=== PATIENT | male | born 1950 | race Caucasian/White ===

== ENCOUNTER 2019-08-08 11:33 | Outpatient (CLI) | payer MEDICARE, OTHER ==
[2019-08-08 18:59] LABS: BASOPHILS % (AUTO) 0.7 %; EOSINOPHILS # (AUTO) 0.1 10^3/uL (0.0-0.7); EOSINOPHILS % (AUTO) 2.1 %; HGB - HEMOGLOBIN 14.1 g/dL (14.0-18.0); LYMPHOCYTES # (AUTO) 2.7 10^3/uL (1.5-3.5); LYMPHOCYTES % (AUTO) 46.6 %; MEAN CORPUSCULAR HEMOGLOBIN 29.1 pg (27.0-31.0); MEAN CORPUSCULAR HGB CONC 31.4 g/dL (32.0-36.0); MEAN CORPUSCULAR VOLUME 92.8 fL (80.0-94.0); MEAN PLATELET VOLUME 10.5 fL (7.4-11.4); MONOCYTES # (AUTO) 0.5 10^3/uL (0.0-1.0); MONOCYTES % (AUTO) 9.3 %; NEUTROPHILS # (AUTO) 2.4 10^3/uL (1.5-6.6); NEUTROPHILS % (AUTO) 41.1 %; PLT - PLATELET COUNT 206 10^3/uL (130-450); RED BLOOD COUNT 4.84 10^6/uL (4.70-6.10); RED CELL DISTRIBUTION WIDTH 13.6 % (12.0-15.0); WHITE BLOOD COUNT 5.8 x10^3/uL (4.8-10.8)
[2019-08-08 19:51] LABS: ALBUMIN 4.1 g/dL (3.2-5.5); ALBUMIN/GLOBULIN RATIO 1.2 (1.0-2.2); BILIRUBIN,TOTAL 0.7 mg/dL (0.2-1.0); CALCIUM 9.3 mg/dL (8.5-10.3); TOTAL PROTEIN 7.4 g/dL (6.7-8.2)
== END 2019-08-08 23:59 | disposition home or self-care (01) ==
LOC: LAB.WCP 11:33
PROVIDERS: ATTEND Physician Assistant Medical
DX: K50.90 Crohn's disease, unspecified, without complications (principal)
CPT/HCPCS: 36415; 80053; 85025

== ENCOUNTER 2020-07-17 07:28 | Outpatient (CLI) | payer MEDICARE, OTHER ==
--- NOTE | 2020-07-17 13:17 | XRAY Report ---
PROCEDURE: Lumbar Spine 2 View INDICATIONS: LUMBAR RADICULOPATHY TECHNIQUE: 2 views of the lumbar spine were acquired. COMPARISON: None. FINDINGS: Bones: 5 [id number] vertebrae are present. There is trace retrolithesis of L2 on L3. Moderate to severe foraminal narrowing at L5-S1. No vertebral body compression fractures. No suspicious bon y lesions. Soft tissues: Overlying bowel gas pattern is normal. No suspicious soft tissue calcifications. IMPRESSION: L5-S1 degenerative change. Reviewed by: Lianet Tejada MD on 07/17/2020 1:16 PM PDT Approved by: Lianet Tejada MD on 07/17/2020 1:16 PM PDT Station ID: [id number]
== END 2020-07-17 07:29 | disposition home or self-care (01) ==
LOC: DI.WCP 07:28
PROVIDERS: ATTEND Physician Assistant Medical
DX: M48.07 Spinal stenosis, lumbosacral region (principal)
CPT/HCPCS: 72100

== ENCOUNTER 2020-08-08 10:40 | Outpatient (CLI) | payer MEDICARE, OTHER ==
--- NOTE | 2020-08-08 10:44 | XRAY Report ---
PROCEDURE: Ribs 2 View RT INDICATIONS: RIGHT SIDED RIB PAIN TECHNIQUE: 2 views of the right ribs were acquired. COMPARISON: none FINDINGS: Surgical changes and devices: None. Bones and chest wall: No fractures or dislocations. No suspicious bony lesions. Overlying soft tis sues appear unremarkable. Lungs and pleura: The visualized lung appears clear. No pleural effusions or pneumothorax are visib le. IMPRESSION: No visualized acute fracture or dislocation. However, occult injury cannot be excluded. Recommend laurie rt interval imaging follow-up in 7-10 days as clinically indicated for additional evaluation. Reviewed by: Lianet Tejada MD on 08/08/2020 10:42 AM PDT Approved by: Lianet Tejada MD on 08/08/2020 10:42 AM PDT Station ID: [id number]
[2020-08-08 11:20] LABS: BASOPHILS % (AUTO) 0.7 %; EOSINOPHILS # (AUTO) 0.2 10^3/uL (0.0-0.7); EOSINOPHILS % (AUTO) 2.9 %; HGB - HEMOGLOBIN 14.4 g/dL (14.0-18.0); LYMPHOCYTES # (AUTO) 2.2 10^3/uL (1.5-3.5); LYMPHOCYTES % (AUTO) 38.8 %; MEAN CORPUSCULAR HEMOGLOBIN 30.8 pg (27.0-31.0); MEAN CORPUSCULAR HGB CONC 33.2 g/dL (32.0-36.0); MEAN CORPUSCULAR VOLUME 92.7 fL (80.0-94.0); MEAN PLATELET VOLUME 10.9 fL (7.4-11.4); MONOCYTES # (AUTO) 0.5 10^3/uL (0.0-1.0); NEUTROPHILS # (AUTO) 2.7 10^3/uL (1.5-6.6); NEUTROPHILS % (AUTO) 48.4 %; PLT - PLATELET COUNT 213 10^3/uL (130-450); RED BLOOD COUNT 4.68 10^6/uL (4.70-6.10); RED CELL DISTRIBUTION WIDTH 13.2 % (12.0-15.0); WHITE BLOOD COUNT 5.6 x10^3/uL (4.8-10.8)
[2020-08-08 12:00] LABS: ALBUMIN 4.2 g/dL (3.2-5.5); ALBUMIN/GLOBULIN RATIO 1.3 (1.0-2.2); ALKALINE PHOSPHATASE 49 IU/L (42-121); ALT ALANINE AMINOTRANSFERASE 18 IU/L (10-60); AST ASPARTATE AMINOTRANSFERASE 24 IU/L (10-42); BILIRUBIN,TOTAL 0.9 mg/dL (0.2-1.0); BUN - BLOOD UREA NITROGEN 14 mg/dL (6-20); CALCIUM 9.6 mg/dL (8.5-10.3); CARBON DIOXIDE - CO2 26 mmol/L (21-32); CHLORIDE 107 mmol/L (101-111); CHOL/HDL RATIO 2.8 (<5.0); CHOLESTEROL 177 mg/dL; CREATININE 0.9 mg/dL (0.6-1.2); GLUCOSE 100 mg/dL (70-100); HDL CHOLESTEROL 63 mg/dL; LDL CHOLESTEROL,CALCULATED 92 mg/dL; LDL/HDL RATIO 1.5 (<3.6); SODIUM 142 mmol/L (135-145); TOTAL PROTEIN 7.5 g/dL (6.7-8.2); VLDL CHOLESTEROL 22 mg/dL
== END 2020-08-08 23:59 | disposition home or self-care (01) ==
LOC: DI.WCP 10:40
PROVIDERS: ATTEND Physician Assistant Medical
DX: R07.81 Pleurodynia (principal); I10 Essential (primary) hypertension
CPT/HCPCS: 36415; 80053; 80061; 83721; 85025

== ENCOUNTER 2021-08-20 15:17 | Outpatient (CLI) | payer MEDICARE, OTHER ==
--- NOTE | 2021-08-21 09:37 | MRI Report ---
PROCEDURE: Lumbar Spine W/O INDICATIONS: LUMBAR RADICULOPATHY TECHNIQUE: Noncontrast sagittal T1 spin echo and T2 fast echo, sagittal STIR, axial T1 and T2 fast spin echo thr ough the lumbar spine. In cases with scoliosis, additional coronal T2 fast spin echo may be performe d. COMPARISON: None. FINDINGS: Image quality: Excellent. Alignment and Curvature: Trace degenerative anterolisthesis of L4 on L5. Bone Marrow: Marrow is of normal overall signal. No acute vertebral body compression fractures. Spinal Cord: Conus medullaris terminates at the L1 level. Visualized cord demonstrates normal signa l and size. Paraspinous Soft Tissues: No paravertebral masses. T12-L1: No canal stenosis or foraminal stenosis. L1-L2: No canal stenosis or foraminal stenosis. L2-L3: Mild facet hypertrophy. No canal stenosis or foraminal stenosis. L3-L4: Mild facet hypertrophy. No canal stenosis or foraminal stenosis. L4-L5: Prominent bilateral facet and ligament hypertrophy. Diffuse disc bulge. Trace degenerative a nterolisthesis of L4 on L5. Severe canal stenosis. Mild to moderate right foraminal narrowing with mi ld flattening deformity on the exiting right L4 nerve root. L5-S1: Disc bulge. Facet hypertrophy. Mild canal stenosis. No significant foraminal stenosis. IMPRESSION: 1. There is severe canal stenosis at L4-L5 and mild canal stenosis at L5-S1. 2. Multilevel facet arthropathy. Reviewed by: Noel Huerta MD on 08/21/2021 9:36 AM PDT Approved by: Noel Huerta MD on 08/21/2021 9:36 AM PDT Station ID: [id number]
== END 2021-08-20 15:18 | disposition home or self-care (01) ==
LOC: DI 15:17
PROVIDERS: ATTEND Physician Assistant Medical
DX: M54.16 Radiculopathy, lumbar region (principal); M48.061 Spinal stenosis, lumbar region without neurogenic claudication

== ENCOUNTER 2022-07-16 09:03 | Outpatient (CLI) | payer MEDICARE, OTHER ==
[2022-07-16 11:42] LABS: BASOPHILS % (AUTO) 0.5 %; EOSINOPHILS # (AUTO) 0.1 10^3/uL (0.0-0.7); EOSINOPHILS % (AUTO) 1.3 %; HGB - HEMOGLOBIN 13.9 g/dL (14.0-18.0); LYMPHOCYTES # (AUTO) 2.2 10^3/uL (1.5-3.5); LYMPHOCYTES % (AUTO) 36.8 %; MEAN CORPUSCULAR HEMOGLOBIN 30.3 pg (27.0-31.0); MEAN CORPUSCULAR HGB CONC 33.1 g/dL (32.0-36.0); MEAN CORPUSCULAR VOLUME 91.7 fL (80.0-94.0); MEAN PLATELET VOLUME 10.4 fL (7.4-11.4); MONOCYTES # (AUTO) 0.5 10^3/uL (0.0-1.0); MONOCYTES % (AUTO) 8.6 %; NEUTROPHILS # (AUTO) 3.1 10^3/uL (1.5-6.6); NEUTROPHILS % (AUTO) 52.6 %; PLT - PLATELET COUNT 216 10^3/uL (130-450); RED BLOOD COUNT 4.58 10^6/uL (4.70-6.10); RED CELL DISTRIBUTION WIDTH 13.5 % (12.0-15.0)
[2022-07-16 12:00] LABS: ALBUMIN 4.2 g/dL (3.2-5.5); ALBUMIN/GLOBULIN RATIO 1.2 (1.0-2.2); ALKALINE PHOSPHATASE 43 IU/L (42-121); ALT ALANINE AMINOTRANSFERASE 23 IU/L (10-60); AST ASPARTATE AMINOTRANSFERASE 29 IU/L (10-42); BILIRUBIN,TOTAL 1.1 mg/dL (0.2-1.0); BUN - BLOOD UREA NITROGEN 13 mg/dL (6-20); CALCIUM 9.7 mg/dL (8.5-10.3); CARBON DIOXIDE - CO2 26 mmol/L (21-32); CHLORIDE 107 mmol/L (101-111); CHOL/HDL RATIO 2.7 (<5.0); CHOLESTEROL 165 mg/dL; CREATININE 0.8 mg/dL (0.6-1.2); GFR - MDRD 95 (>89); GLUCOSE 112 mg/dL (70-100); HDL CHOLESTEROL 61 mg/dL; LDL CHOLESTEROL,CALCULATED 89 mg/dL; LDL/HDL RATIO 1.5 (<3.6); POTASSIUM 3.9 mmol/L (3.5-5.0); SODIUM 141 mmol/L (135-145); TOTAL PROTEIN 7.6 g/dL (6.7-8.2); TRIGLYCERIDES 77 mg/dL; VLDL CHOLESTEROL 15 mg/dL
== END 2022-07-16 09:04 | disposition home or self-care (01) ==
LOC: LAB.N 09:03
PROVIDERS: ATTEND Physician Assistant Medical
DX: I10 Essential (primary) hypertension (principal)
CPT/HCPCS: 36415; 80053; 80061; 83721; 85025

== ENCOUNTER 2023-10-04 22:45 | Emergency (ER) | payer MEDICARE, OTHER ==
[2023-10-04 23:25] LABS: BASOPHILS % (AUTO) 0.4 %; EOSINOPHILS # (AUTO) 0.1 10^3/uL (0.0-0.7); EOSINOPHILS % (AUTO) 1.1 %; HCT - HEMATOCRIT 42.9 % (42.0-52.0); HGB - HEMOGLOBIN 14.3 g/dL (14.0-18.0); LYMPHOCYTES # (AUTO) 1.8 10^3/uL (1.5-3.5); LYMPHOCYTES % (AUTO) 16.6 %; MEAN CORPUSCULAR HEMOGLOBIN 30.4 pg (27.0-31.0); MEAN CORPUSCULAR HGB CONC 33.3 g/dL (32.0-36.0); MEAN CORPUSCULAR VOLUME 91.3 fL (80.0-94.0); MONOCYTES # (AUTO) 0.6 10^3/uL (0.0-1.0); MONOCYTES % (AUTO) 5.7 %; NEUTROPHILS # (AUTO) 8.1 10^3/uL (1.5-6.6); NEUTROPHILS % (AUTO) 75.9 %; PLT - PLATELET COUNT 210 10^3/uL (130-450); RED CELL DISTRIBUTION WIDTH 13.8 % (12.0-15.0); WHITE BLOOD COUNT 10.7 x10^3/uL (4.8-10.8)
[2023-10-04 23:59] LABS: ALBUMIN 3.9 g/dL (3.2-5.5); ALBUMIN/GLOBULIN RATIO 1.3 (1.0-2.2); BILIRUBIN,TOTAL 0.7 mg/dL (0.2-1.0); CALCIUM 9.6 mg/dL (8.5-10.3); CREATININE 0.7 mg/dL (0.6-1.3); POTASSIUM 4.1 mmol/L (3.5-4.5)
--- NOTE | 2023-10-05 00:09 | ED Physician Documentation ---
PD HPI ABD PAIN - Stated complaint Stated Complaint: GI - Chief complaint Chief Complaint: Abd Pain - History obtained from History obtained from: Patient - Additional information Additional information: HPI from patient. Patient c/o diffuse abdominal pain that waxes and wanes, "waves of pain" (per patient) with nausea and vomiting associated with the more intense pains. There was no inciting event and no ameliorating nor exacerbating factors. Symptoms began earlier today and are c/w previous episodes of SBO. 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 He subsequently had to have another procedure due to SBO secondary to stenosis/stricture formation at the site of anastomosis. He says he has had many previous episodes of these symptoms which resolved rapidly with vomiting alone, or else a few doses of anti-nauseants and/or pain medications. He denies fever. His pain is exacerbated with PO intake although he is tolerating PO Review of Systems Constitutional: denies: Fever, Chills, Sweats Cardiac: reports: Reviewed and negative Respiratory: reports: Reviewed and negative GI: reports: Abdominal Pain, Nausea, Vomiting. denies: Abdominal Swelling, Constipation, Diarrhea, Hematemesis, Bloody / black stool PD PAST MEDICAL HISTORY - Past Medical History Cardiovascular: Hypertension GI: Crohn's disease Musculoskeletal: Other Other Past Medical History: spinal stenosis - Past Surgical History General: Cholecystectomy - Present Medications Home Medications: Ambulatory Orders Medication Instructions Recorded Confirmed Latanoprost 0.005% Ophth Drops 1 drops RIGHTEYE QPM 10/05/23 10/05/23 [Xalatan Ophth Drops] Lisinopril [Zestril] 10 mg PO DAILY 10/05/23 10/05/23 Ondansetron Odt [Zofran Odt] 4 mg TL Q6H PRN #14 tablet 10/05/23 oxyCODONE [Roxicodone] 5 - 10 mg PO Q6H PRN #20 tablet 10/05/23 - Allergies Allergies/Adverse Reactions: Allergies Allergy/AdvReac Type Severity Reaction Status Date / Time morphine AdvReac Itching Verified 10/04/23 23:01 - Social History Does the pt smoke?: No Smoking Status: Never smoker Does the pt drink ETOH?: No Does the pt have substance abuse?: No PD ED PE NORMAL - Vitals Vital signs reviewed: Yes - General General: Alert and oriented X 3, No acute distress, Well developed/nourished - HEENT HEENT: Moist mucous membranes - Cardiac Cardiac: RRR, No murmur - Respiratory Respiratory: No respiratory distress, Clear bilaterally - Abdomen Abdomen: Normal bowel sounds, Soft, Non distended, Other (mild TTP RUQ and right hypogastrium without rebound or guarding) - Back Back: No CVA TTP Results - Vitals Vitals: Vital Signs - 24 hr 10/05/23 10/05/23 03:00 05:00 Heart Rate 98 89 Respiratory 16 18 Rate Blood Pressure 150/89 H 140/80 H O2 Saturation 95 94 Oxygen O2 Source Room air - Labs Labs: Laboratory Tests 10/04/23 10/04/23 10/05/23 03:20 23:42 00:05 WBC 10.7 RBC 4.70 Hgb 14.3 Hct 42.9 MCV 91.3 MCH 30.4 MCHC 33.3 RDW 13.8 Plt Count 210 MPV 10.0 Neut # (Auto) 8.1 H Lymph # (Auto) 1.8 [place] # (Auto) 0.6 Eos # (Auto) 0.1 Baso # (Auto) 0.0 Absolute Nucleated RBC 0.00 Nucleated RBC % 0.0 Sodium 138 Potassium 4.1 Chloride 107 Carbon Dioxide 23 Anion Gap 8.0 BUN 16 Creatinine 0.7 Estimated GFR (MDRD) 110 Glucose 123 H Calcium 9.6 Total Bilirubin 0.7 AST 24 ALT 15 Alkaline Phosphatase 43 Total Protein 7.0 Albumin 3.9 Globulin 3.1 Albumin/Globulin Ratio 1.3 Lipase 22 Urine Color YELLOW Urine Clarity CLEAR Urine pH 6.0 Ur Specific [place] >=1.030 H Urine Protein TRACE Urine Glucose (UA) NEGATIVE Urine Ketones TRACE Urine Occult Blood MODERATE H Urine Nitrite NEGATIVE Urine Bilirubin NEGATIVE Urine Urobilinogen 0.2 (NORMAL) Ur Leukocyte Esterase NEGATIVE Urine RBC 6-10 H Urine WBC 0-3 Ur Squamous Epith Cells NONE SEEN Urine Bacteria None Seen Urine Mucus Few Strands Ur Microscopic Review INDICATED Urine Culture Comments NOT INDICATED - Rads (name of study) CT A/P with IV contrast Relevant Findings:: Prelim report reviewed, See rad report PD Medical Decision Making - ED course Complexity details: reviewed results, re-evaluated patient, considered differential, d/w patient ED course: Normal CBC (only abnormality is high neutrophils (8.1) which is neither concerning nor relevant), normal ER abdominal panel (glucose flagged as high but is only 123). UA is concentrated with specific gravity of greater than 1.030, but relevantly notable for hematuria (6-10 RBC/HPF). This is a consideration regarding CT findings, as there is not only evidence of SBO with transition point in RUQ at anastomsis site, but also a 9mm right-sided calculus in the area of the UPJ. There is no uretero/hydronephrosis, but with the hematuria, this could certainly be causing some of his abdominal discomfort. The site of the SBO is also in this area (RUQ) and I suspect the symptoms are mostly, possibly entirely, due to the SBO. Given lack of findings to suggest infection (normal WBC, afebrile, and no UA findings to suggest concomitant UTI), the finding does not need further testing/treatment at this time provided adequate symptom control can be achieved. As for the SBO, the patient's disposition is also predominantly predicated on symptom control, given that the CT finding do not suggest an advanced SBO (small bowel loops are only mildly dilated, and no evidence of perforation, microperforation, or other complication of SBO). I discussed the results with patient and disposition was discussed at length. I explained that it would be reasonable to admit if his symptoms are not adequately controlled, but if patient feels comfortable with d/c home and symptoms are controlled from his standpoint, d/c home with strict adherence to return precautions is also a reasonable approach. He was given 0.5mg IV dilaudid after initial H+P and reports feeling much improved with this medication. He is also given 1 liter NS IV and 4mg IV zofran. He expresses preference for d/c home and understands he should return immediately if his symptoms worsen in any way, but particularly if his pain is not controlled with prescribed medication, n/v not controlled with rx, blood in stool or vomitus, fever. He is given a second dose of 0.5 mg IV dilaudid prior to d/c. Oxycodone and ondansetron are electronically prescribed to his pharmacy of choice. On reexam prior to d/c (but before the second dose of dilaudid is given), his abdominal exam is benign with no tenderness throughout. I am prescribing a short course of short-acting opioid pain medication for this patient. I have reviewed the patients [employer] and no concerning findings were noted. I have discussed that the opioids are for short term therapy only, and will not be refilled from the ED. Departure - Departure Disposition: 01 Home, Self Care Clinical Impression: Small bowel anastomotic stricture, Small bowel obstruction Condition: Good Instructions: Obstruction Sm Bowel, Kidney Stones Prescriptions: oxyCODONE [Roxicodone] 5 - 10 mg PO Q6H PRN #20 tablet PRN Reason: Pain >8 Ondansetron Odt [Zofran Odt] 4 mg TL Q6H PRN #14 tablet PRN Reason: Nausea / Vomiting Comments: The CT scan of your abdomen and pelvis confirmed that you have a small bowel obstruction. The area of obstruction is associated with a narrowing of the anastomosis (the area where a section of bowel was surgically removed in the past and the remaining ends sewn together); you have indicated to me that this is the same area that has been associated with previous obstructions. We discussed options for treatment including admitting to the hospital. As you also feeling better after the small dose of pain medication given in the IV, it is reasonable to discharge you home as per your request. Keep in mind that you should return immediately to the emergency department if your symptoms worsen in any way, or if you develop new/concerning signs/symptoms (such as fever, worsening pain, worsening nausea and vomiting). The CT scan also shows a large right-sided kidney stone. Based on the location of the kidney stone, and the urinalysis result which shows a small amount of blood in the urine, this might be contributing to your symptoms. Even if your symptoms resolve, it is important that you follow-up with a urologist regarding this finding. I have electronically submitted prescriptions for oxycodone (narcotic/opiate pain medication) and ondansetron (anti-nausea medication) to the [facility] in [place]. Contact your primary care provider to arrange for follow-up/reevaluation, next available appointment. I am prescribing a short course of narcotic pain medication for you. These are potentially dangerous and addictive medications that should be used carefully. These medications may constipate you. Take an amdd-knp-evqiaro stool softener (docusate) twice daily with plenty of water while taking these medications. If you go 24 hours without a bowel movement, take bnao-lqn-hyaiyig miralax, per package instructions. Do not drink or drive while taking these medications. If you received narcotic or sedating medications while in the emergency department, do not drive for 24 hours. Store this medication in a safe, secure place and out of reach of children. It is a violation of federal law to give or sell this medication to another person or to use in a manner other than prescribed. The ED will not refill narcotic prescriptions, including prescriptions lost or stolen. To dispose of unwanted medications: 1. [facility] [address] in [place] has a medication drop box. They accept prescription medications (in pill form) Wednesday through Wednesday 9:00 a.m. to 5:00 p.m. 2. The [facility] [employer] [facility] accepts prescription medications (in pill form only) for disposal year round. Call for more information. 3. Contact the [facility] for the next [facility] sponsored prescription drug collection event. , [phone], or [phone]; Forms: PCP List Discharge Date/Time: 10/05/23 05:15
[2023-10-05 00:12] LABS: BILIRUBIN,URINE NEGATIVE (NEGATIVE); GLUCOSE, URINE (UA) NEGATIVE (NEGATIVE); KETONES,URINE (UA) TRACE mg/dL (NEGATIVE); LEUKOCYTE ESTERASE, URINE NEGATIVE (NEGATIVE); NITRITE,URINE NEGATIVE (NEGATIVE); OCCULT BLOOD,URINE MODERATE (NEGATIVE); PROTEIN,URINE TRACE mg/dL (NEGATIVE); UROBILINOGEN,URINE 0.2 (NORMAL) E.U./dL (NORMAL)
[2023-10-05 00:53] LABS: CLARITY,URINE CLEAR (CLEAR)
[2023-10-05] MEDS ORDERED: ONDANSETRON 4 MG/2 ML VIAL IVP STA (00:53)
[2023-10-05] MEDS ORDERED: HYDROmorphone 1 MG/ML CARPUJECT IVP STA ×2 (00:53→04:44)
[2023-10-05] MEDS ORDERED: SODIUM CHLORIDE 0.9% 1,000 ML IV STA (00:53)
[2023-10-05 00:56] LABS: BACTERIA,URINE None Seen /HPF (None Seen); MUCUS,URINE Few Strands; SQUAMOUS EPITHELIAL CELL,UR NONE SEEN (<= Few); WBC,URINE 0-3 /HPF (0-3)
[2023-10-05] MEDS ORDERED: iohexoL-300 100 ML VIAL IVP ONE (02:38)
[2023-10-05 05:15] VITALS: BP 140/80; O2SAT 94
--- NOTE | 2023-10-05 08:13 | CT Report ---
PROCEDURE: ABDOMEN/PELVIS W INDICATIONS: abd. pain, h/o SBO CONTRAST: Omni 300 100ml TECHNIQUE: After the administration of IV contrast, 5 mm thick sections acquired from the diaphragms to the symp hysis. 5 mm thick coronal and sagittal reformats were acquired. For radiation dose reduction, the f ollowing was used: automated exposure control, adjustment of mA and/or kV according to patient size. COMPARISON: None. FINDINGS: Image quality: Excellent. Lung bases and heart: Unremarkable. Liver: No solid mass. Mild hepatic steatosis. Calcified granulomas in liver. Gallbladder and biliary tree: The gallbladder is surgically removed. No biliary dilation. Spleen: No splenomegaly. Calcified granulomas in spleen. Pancreas: No pancreatic ductal dilation. Adrenals: No adrenal nodule. Kidneys and ureters: There is a 5 x 8 mm stone in the proximal right ureter demonstrating CT density 672 Hounsfield units. A 4 mm stone is seen in right renal pelvis. No hydronephrosis. No renal cystic lesion which requires follow up. No solid mass. Bowel and peritoneum: Stomach is mildly distended with an air-fluid level. Small intestine consistent with fluid and mildly dilated measuring up to 3.5 cm. There are postsurgical changes in the distal c olon and terminal ileum with ileocolic anastomosis. Fecal material can be seen in the distal small in testine proximal to the surgical suture. It is likely the site of obstruction. No pathologic free flu id. No free air. Lymph nodes: No central or retroperitoneal adenopathy. Vessels: No infrarenal aortic aneurysm. PELVIS Reproductive organs: Unremarkable. Bladder: No abnormal wall thickening, accounting for underdistension. Pelvic lymph nodes: No pelvic adenopathy by size criteria. Bones: No aggressive osseous abnormality. Other: No significant ventral or inguinal hernia. IMPRESSION: 1. Distal small bowel obstruction. The obstruction is at the prior surgical anastomosis. 2. A 5 x 8 mm right proximal ureteral stone. In addition, there is a stone in the right renal pelvis. No hydronephrosis. 3. Multiple calcified granulomas in liver and spleen. Findings are concordant with preliminary interpretation provided by [facility]. Reviewed by: Aaliyah Morel MD on 10/05/2023 8:11 AM PST Approved by: Aaliyah Morel MD on 10/05/2023 8:11 AM PST Station ID: [id number]
== END 2023-10-05 05:15 | disposition home or self-care (01) ==
LOC: ED 22:45
DX: K56.609 Unspecified intestinal obstruction, unspecified as to partial versus complete obstruction (principal); K50.90 Crohn's disease, unspecified, without complications; I10 Essential (primary) hypertension; Z79.899 Other long term (current) drug therapy
CPT/HCPCS: 36415; 74177; 80053; 81001; 83690; 85025; 96374; 96375; 96376; 99284; J1170; Q9967; 81003; 87086

== ENCOUNTER 2024-06-05 13:50 | Emergency (ER) | payer MEDICARE, OTHER ==
[2024-06-05 15:07] LABS: BILIRUBIN,URINE NEGATIVE (NEGATIVE); GLUCOSE, URINE (UA) NEGATIVE (NEGATIVE); KETONES,URINE (UA) NEGATIVE (NEGATIVE); LEUKOCYTE ESTERASE, URINE NEGATIVE (NEGATIVE); NITRITE,URINE NEGATIVE (NEGATIVE); OCCULT BLOOD,URINE LARGE (NEGATIVE); PROTEIN,URINE TRACE mg/dL (NEGATIVE); UROBILINOGEN,URINE 0.2 (NORMAL) E.U./dL (NORMAL)
[2024-06-05 15:23] LABS: CLARITY,URINE CLEAR (CLEAR)
[2024-06-05 15:24] LABS: BACTERIA,URINE None Seen /HPF (None Seen); RBC,URINE TNTC /HPF (0-5); SQUAMOUS EPITHELIAL CELL,UR NONE SEEN (<= Few); WBC,URINE 0-3 /HPF (0-3)
[2024-06-05 15:27] LABS: BASOPHILS % (AUTO) 0.5 %; EOSINOPHILS # (AUTO) 0.1 10^3/uL (0.0-0.7); EOSINOPHILS % (AUTO) 1.3 %; LYMPHOCYTES % (AUTO) 25.5 %; MEAN CORPUSCULAR HEMOGLOBIN 30.1 pg (27.0-31.0); MEAN CORPUSCULAR HGB CONC 32.6 g/dL (32.0-36.0); MEAN CORPUSCULAR VOLUME 92.5 fL (80.0-94.0); MEAN PLATELET VOLUME 9.6 fL (7.4-11.4); MONOCYTES # (AUTO) 0.7 10^3/uL (0.0-1.0); NEUTROPHILS # (AUTO) 5.1 10^3/uL (1.5-6.6); NEUTROPHILS % (AUTO) 63.4 %; PLT - PLATELET COUNT 197 10^3/uL (130-450); RED BLOOD COUNT 4.65 10^6/uL (4.70-6.10); RED CELL DISTRIBUTION WIDTH 13.3 % (12.0-15.0)
[2024-06-05 15:37] LABS: ALBUMIN 4.2 g/dL (3.2-5.5); ALBUMIN/GLOBULIN RATIO 1.3 (1.0-2.2); BILIRUBIN,TOTAL 0.7 mg/dL (0.2-1.0); CALCIUM 9.9 mg/dL (8.5-10.3); TOTAL PROTEIN 7.4 g/dL (6.4-8.9)
--- NOTE | 2024-06-05 17:12 | ED Physician Documentation ---
History of Present Illness - Stated complaint Stated Complaint: RT SIDE PX - Chief complaint Chief Complaint: Abd Pain - History obtained from History obtained from: Patient - History of Present Illness Timing: Today Pain level max: 9 Pain level now: 0 - Additonal information Additional information: 73-year-old male states that he had right flank pain earlier today that felt like a prior kidney stone. He states the pain has been resolved for several hours now and no longer has any pain. He is requesting to go home at this time. No nausea or vomiting. No fever. No dysuria. Review of Systems Constitutional: denies: Fever, Chills GI: denies: Vomiting, Diarrhea Skin: denies: Rash Musculoskeletal: denies: Neck pain PD PAST MEDICAL HISTORY - Past Medical History Cardiovascular: Hypertension GI: Crohn's disease Musculoskeletal: Other - Past Surgical History General: Cholecystectomy - Present Medications Home Medications: Ambulatory Orders Medication Instructions Recorded Confirmed Latanoprost 0.005% Ophth Drops 1 drops RIGHTEYE QPM 10/05/23 10/05/23 [Xalatan Ophth Drops] Lisinopril [Zestril] 10 mg PO DAILY 10/05/23 10/05/23 Ondansetron Odt [Zofran Odt] 4 mg TL Q6H PRN #14 tablet 10/05/23 oxyCODONE [Roxicodone] 5 - 10 mg PO Q6H PRN #20 tablet 10/05/23 - Allergies Allergies/Adverse Reactions: Allergies Allergy/AdvReac Type Severity Reaction Status Date / Time morphine AdvReac Itching Verified 06/05/24 14:48 - Social History Does the pt smoke?: No Smoking Status: Never smoker Does the pt drink ETOH?: No Does the pt have substance abuse?: No PD ED PE NORMAL - Vitals Vital signs reviewed: Yes - General General: Alert and oriented X 3, No acute distress - HEENT HEENT: Moist mucous membranes - Neck Neck: Supple, no meningeal sign - Cardiac Cardiac: RRR, Strong equal pulses - Respiratory Respiratory: No respiratory distress, Clear bilaterally - Abdomen Abdomen: Soft, Non tender, Non distended - Back Back: No CVA TTP, No spinal TTP - Derm Derm: Warm and dry - Extremities Extremities: No edema - Neuro Neuro: Alert and oriented X 3 - Psych Psych: Normal mood, Normal affect Results - Vitals Vitals: Vital Signs - 24 hr 08/12/24 08/12/24 14:43 17:25 Temperature 36.4 C L Heart Rate 79 68 Respiratory 20 18 Rate Blood Pressure 155/83 H 132/82 H O2 Saturation 98 100 Oxygen O2 Source Room air - Labs Labs: Laboratory Tests 06/05/24 06/05/24 06/05/24 14:57 15:16 15:16 WBC 8.0 RBC 4.65 L Hgb 14.0 Hct 43.0 MCV 92.5 MCH 30.1 MCHC 32.6 RDW 13.3 Plt Count 197 MPV 9.6 Neut # (Auto) 5.1 Lymph # (Auto) 2.0 [place] # (Auto) 0.7 Eos # (Auto) 0.1 Baso # (Auto) 0.0 Absolute Nucleated RBC 0.00 Nucleated RBC % 0.0 Sodium 138 Potassium 4.0 Chloride 106 Carbon Dioxide 26 Anion Gap 6.0 BUN 14 Creatinine 1.0 Estimated GFR (MDRD) 73 L Glucose 105 H Calcium 9.9 Total Bilirubin 0.7 AST 24 ALT 17 Alkaline Phosphatase 51 Total Protein 7.4 Albumin 4.2 Globulin 3.2 Albumin/Globulin Ratio 1.3 Lipase 31 Urine Color YELLOW Urine Clarity CLEAR Urine pH 6.0 Ur Specific [place] 1.020 Urine Protein TRACE Urine Glucose (UA) NEGATIVE Urine Ketones NEGATIVE Urine Occult Blood LARGE H Urine Nitrite NEGATIVE Urine Bilirubin NEGATIVE Urine Urobilinogen 0.2 (NORMAL) Ur Leukocyte Esterase NEGATIVE Urine RBC TNTC H Urine WBC 0-3 Ur Squamous Epith Cells NONE SEEN Urine Bacteria None Seen Ur Microscopic Review INDICATED Urine Culture Comments NOT INDICATED PD Medical Decision Making - ED course Complexity details: reviewed results, re-evaluated patient, considered differential, d/w patient ED course: 73-year-old male states that he had right flank pain earlier that felt like his usual kidney stone pain. He states that it is fully resolved at this point. Does not want any further testing. He would like to go home at this time. Does not want a CT scan. Laboratory testing does not show any acute abnormalities. Urinalysis does show hematuria that would be consistent with a ureteral stone. Recommend that he return if you worsen or follow-up with his PCP as needed for further care. Patient counseled regarding signs and symptoms for which I believe and urgent re-evaluation would be necessary. Patient with good understanding of and agreement to plan and is comfortable going home at this time This document was made in part using voice recognition software. While efforts are made to proofread this document, sound alike and grammatical errors may occur. Departure - Departure Disposition: 01 Home, Self Care Clinical Impression: Ureteral calculus, right Condition: Good Instructions: ED Stone Renal W Colic Follow-Up: Mary Cleaning PA-C [Primary Care Provider] - Comments: Please follow-up with your doctor for further care. Please return if you worsen including worsening pain, fevers, vomiting or other new or worrisome symptoms. Forms: PCP List Discharge Date/Time: 06/05/24 17:25
[2024-06-05 17:29] VITALS: BP 132/82; O2SAT 100
== END 2024-06-05 17:25 | disposition home or self-care (01) ==
LOC: ED 13:50
DX: N20.1 Calculus of ureter (principal); I10 Essential (primary) hypertension; Z87.442 Personal history of urinary calculi; Z79.899 Other long term (current) drug therapy
CPT/HCPCS: 36415; 80053; 81001; 81003; 83690; 85025; 87086; 99283